=== PATIENT | female | born 1965 | race Caucasian/White ===

== ENCOUNTER 2020-09-15 15:16 | Inpatient (IN) | payer MEDICARE, OTHER ==
[~2020-09-15] VITALS: Ht 172.7 cm; Wt 112.5 kg
[~2020-09-15 15:16] MED LIST: ACETAZOLAMIDE250 MG PO; ACID CONTROL150 MG PO; ADVAIR 250-501 EACH INH; ALBUTEROL1.25 MG/3 INH; ALBUTEROL2.5 MG/3 M INH; AMBIEN10 MG PO; ANORO ELLIPTA1 EACH INH; AZITHROMYCIN500 MG PO; BENZONATATE200 MG PO; BUMETANIDE1 MG PO; BUMEX 1MG TABLET1 MG PO; CILOSTAZOL50 MG PO; CLONAZEPAM0.5 MG PO; COMBIVENT0.074 GM/I INH; DESYREL 50 MG T50 MG PO; DIAMOX 250 MG250 MG PO; DOXYCYCLINE HY100 MG PO; DULERA 200 MCG8.8 GM INH; FISH OIL 1,0001 EACH PO; FLEXERIL 10 MG10 MG PO; GABAPENTIN800 MG PO; HYDROCHLOROTHIA25 MG PO; IMDUR ER TAB 3030 MG PO; IMDUR ER TAB 6060 MG PO; INCRUSE ELLI62.5 MCG INH; ISOSORBIDE MONO30 MG PO; K-DUR TAB 10 M10 MEQ PO; KLONOPIN TAB 00.5 MG PO; KLOR-CON M1010 MEQ PO; LACTULOSE20 GM/30 M PO; LEVAQUIN500 MG PO; LEVOFLOXACIN500 MG PO; LIPITOR80 MG PO; LOPRESSOR 50 MG50 MG PO; MEDROL DOSEPAK 24 MG PO; MEDROL4 MG PO; MIRAPEX0.25 MG PO; MIRAPEX1 MG PO; MUCINEX600 MG PO; NEURONTIN800 MG PO; NICOTINE PATCH1 EAC1 TD; NICOTINE PATCH1 EAC2 TD; NITROSTAT 0.40.4 MG SL; NITROSTAT0.4 MG SL; NYSTATIN1 EAC1 TOP; PAXIL10 MG PO; PLAVIX 75 MG TA75 MG PO; PREDNISONE 50 M50 MG PO; PROTONIX 40 MG40 M1 PO; PROVENTIL HFA 61 INH INH; RANEXA500 MG PO; RANITIDINE HCL150 MG PO; REQUIP1 MG PO; SINGULAIR10 MG PO; TOPROL XL25 MG PO; TRAMADOL HCL50 MG PO; TUDORZA PRESS400 MCG INH; ULTRAM50 MG PO; VENTOLIN HFA 66.7 GM INH; VIBRAMYCIN100 MG PO; VITAMIN D250000 UNIT PO; XIFAXAN 550 MG550 MG PO; ZOFRAN 8 MG TAB8 MG PO
[2020-09-15 16:11] LABS: HEMOGLOBIN 18.4 gm/dl (12.3-15.3); RED BLOOD COUNT 6.29 M/UL (4.00-5.10); WHITE BLOOD COUNT 11.9 K/UL (4.5-11.0)
[2020-09-15 16:34] LABS: BUN/CREATININE RATIO 17 (0-10)
[2020-09-15] MEDS ORDERED: TAGAMET 400 MG400 MG PO (22:31)
[2020-09-15] MEDS ORDERED: CLOPIDOGREL75 MG PO (22:32)
[2020-09-15] MEDS ORDERED: LOPRESSOR 50 MG50 MG PO (22:59)
[2020-09-16 05:03] LABS: HEMOGLOBIN 17.6 gm/dl (12.3-15.3); RED BLOOD COUNT 5.97 M/UL (4.00-5.10)
[2020-09-16 05:14] LABS: WHITE BLOOD COUNT 6.4 K/UL (4.5-11.0)
[2020-09-16 05:37] LABS: BUN/CREATININE RATIO 24 (0-10)
[2020-09-17 05:37] LABS: HEMOGLOBIN 15.5 gm/dl (12.3-15.3); RED BLOOD COUNT 5.31 M/UL (4.00-5.10)
[2020-09-17 06:15] LABS: BUN/CREATININE RATIO 28 (0-10)
[2020-09-18 07:45] LABS: RED BLOOD COUNT 5.48 M/UL (4.00-5.10)
[2020-09-18 07:46] LABS: WHITE BLOOD COUNT 17.3 K/UL (4.5-11.0)
[2020-09-18 08:17] LABS: BUN/CREATININE RATIO 31 (0-10)
[2020-09-19 04:51] LABS: HEMOGLOBIN 15.8 gm/dl (12.3-15.3); RED BLOOD COUNT 5.45 M/UL (4.00-5.10)
[2020-09-19 04:53] LABS: WHITE BLOOD COUNT 12.6 K/UL (4.5-11.0)
[2020-09-19 05:06] LABS: BUN/CREATININE RATIO 45 (0-10)
[2020-09-20 05:01] LABS: HEMOGLOBIN 16.2 gm/dl (12.3-15.3); RED BLOOD COUNT 5.55 M/UL (4.00-5.10); WHITE BLOOD COUNT 11.7 K/UL (4.5-11.0)
[2020-09-20 05:16] LABS: BUN/CREATININE RATIO 58 (0-10)
[2020-09-21 03:55] LABS: HEMOGLOBIN 18.4 gm/dl (12.3-15.3); RED BLOOD COUNT 6.26 M/UL (4.00-5.10); WHITE BLOOD COUNT 15.7 K/UL (4.5-11.0)
[2020-09-21 04:27] LABS: BUN/CREATININE RATIO 80 (0-10)
[2020-09-22 03:28] LABS: HEMOGLOBIN 19.1 gm/dl (12.3-15.3); RED BLOOD COUNT 6.52 M/UL (4.00-5.10); WHITE BLOOD COUNT 13.7 K/UL (4.5-11.0)
[2020-09-22 03:44] LABS: BUN/CREATININE RATIO 52 (0-10)
[2020-09-23 07:31] LABS: HEMOGLOBIN 17.6 gm/dl (12.3-15.3); RED BLOOD COUNT 6.3 M/UL (4.00-5.10); WHITE BLOOD COUNT 16.1 K/UL (4.5-11.0)
[2020-09-23 07:36] LABS: BUN/CREATININE RATIO 52 (0-10)
[2020-09-26 13:10] LABS: 7-AMINOCLONAZEPAM Negative (.); ALPRAZOLAM Negative (.); BENZODIAZEPINES CONFIRM Positive (.); CHLORDIAZEPOXIDE Negative (.); CLONAZEPAM PRESENT ng/mL (.); DESALKYLFLURAZEPAM Negative (.); DESMETHYLCHLORDIAZEPOXIDE Negative (.); DESMETHYLDIAZEPAM Negative (.); DIAZEPAM Negative (.); FLURAZEPAM Negative (.); LORAZEPAM Negative (.); MIDAZOLAM 389 ng/mL (.); OXAZEPAM Negative (.); TEMAZEPAM Negative (.); TRIAZOLAM Negative (.)
[2020-09-26] MEDS ORDERED: XIFAXAN 550 MG550 MG PO (15:48)
[2020-09-30 02:08] LABS: COTININE 42.4 ng/mL (.); NICOTINE <1.0 ng/mL (.)
== END 2020-09-26 17:46 | disposition home or self-care (01) | DRG 207 ==
LOC: ER1 15:16 → 2 EAST 17:14 → ZEROF 17:14 → MED SURG 4 17:14 → 2 EAST 09-16 01:00 → CCU 09-20 09:41 → MED SURG 4 09-23 15:42
PROVIDERS: Hospitalist; Internal Medicine; Internal Medicine Pulmonary Disease; Preventive Medicine Occupational Medicine; ADMIT Internal Medicine Infectious Disease
PROC: 5A1955Z Respiratory Ventilation, Greater than 96 Consecutive Hours (ICD-10-PCS; principal; 2020-09-15)
PROC: 0BH17EZ Insertion of Endotracheal Airway into Trachea, Via Natural or Artificial Opening (ICD-10-PCS; 2020-09-15)
PROC: 8E0ZXY6 Isolation (ICD-10-PCS; 2020-09-15)
PROC: XW033E5 Introduction of Remdesivir Anti-infective into Peripheral Vein, Percutaneous Approach, New Technology Group 5 (ICD-10-PCS; 2020-09-15)
PROC: XW13325 Transfusion of Convalescent Plasma (Nonautologous) into Peripheral Vein, Percutaneous Approach, New Technology Group 5 (ICD-10-PCS; 2020-09-16)
PROC: 5A09457 Assistance with Respiratory Ventilation, 24-96 Consecutive Hours, Continuous Positive Airway Pressure (ICD-10-PCS; 2020-09-22)
DX: U07.1 COVID-19 (principal); J12.82 Pneumonia due to coronavirus disease 2019; J96.22 Acute and chronic respiratory failure with hypercapnia; J96.21 Acute and chronic respiratory failure with hypoxia; J15.6 Pneumonia due to other Gram-negative bacteria; E66.2 Morbid (severe) obesity with alveolar hypoventilation; I13.0 Hypertensive heart and chronic kidney disease with heart failure and stage 1 through stage 4 chronic kidney disease, or unspecified chronic kidney disease; I50.32 Chronic diastolic (congestive) heart failure; J44.0 Chronic obstructive pulmonary disease with (acute) lower respiratory infection; J44.1 Chronic obstructive pulmonary disease with (acute) exacerbation; G93.40 Encephalopathy, unspecified; L89.156 Pressure-induced deep tissue damage of sacral region; F17.210 Nicotine dependence, cigarettes, uncomplicated; N18.2 Chronic kidney disease, stage 2 (mild); I25.10 Atherosclerotic heart disease of native coronary artery without angina pectoris; E78.5 Hyperlipidemia, unspecified; F41.9 Anxiety disorder, unspecified; F32.9 Major depressive disorder, single episode, unspecified; I27.20 Pulmonary hypertension, unspecified; K75.81 Nonalcoholic steatohepatitis (NASH); D75.1 Secondary polycythemia; R00.1 Bradycardia, unspecified; K21.9 Gastro-esophageal reflux disease without esophagitis; K74.60 Unspecified cirrhosis of liver; G89.29 Other chronic pain; Z95.5 Presence of coronary angioplasty implant and graft; Z83.3 Family history of diabetes mellitus; Z68.37 Body mass index [BMI] 37.0-37.9, adult; Z80.0 Family history of malignant neoplasm of digestive organs; Z80.3 Family history of malignant neoplasm of breast; Z80.1 Family history of malignant neoplasm of trachea, bronchus and lung; Z88.0 Allergy status to penicillin; Z79.02 Long term (current) use of antithrombotics/antiplatelets; Z79.899 Other long term (current) drug therapy; Z88.6 Allergy status to analgesic agent; Z88.8 Allergy status to other drugs, medicaments and biological substances
CPT/HCPCS: 36415; 36600; 71045; 80048; 80053; 80307; 82140; 82550; 82553; 82728; 82803; 83605; 83615; 83690; 83874; 83880; 84484; 85025; 85027; 85379; 85610; 85652; 86140; 86900; 86901; 86927; 87040; 87070; 87077; 87186; 87205; 92526; 92610; 94002; 94003; 94640; 94660; 94664; 94760; 96365; 96366; 96367; 96368; 96375; 96376; 97116-GP-CQ; 97162; 97166; 97535; 99285; A6212; G0480; J0330; J0456; J1100; J1120; J1205; J1265; J1335; J1650; J2020; J2185; J2250; J3010; J7030; J7040; J7042; U0002

== ENCOUNTER → 2020-11-16 | Outpatient (CLI) | payer MEDICARE, OTHER ==
[~2020-11-16] MED LIST changes: +CLOPIDOGREL75 MG PO; +TAGAMET 400 MG400 MG PO
== END ==
LOC: EXRD 09:46
DX: R06.02 Shortness of breath (principal); J43.9 Emphysema, unspecified; R91.8 Other nonspecific abnormal finding of lung field
CPT/HCPCS: 71046